=== PATIENT | female | born 1990 | race African-American/Black ===

== ENCOUNTER → 2017-07-05 | Outpatient (CLI) | payer OTHER | END | disposition home or self-care (01) | LOC: RAD 11:56 | DX: M79.605 Pain in left leg (principal) | CPT/HCPCS: 73502 ==

== ENCOUNTER → 2017-07-25 | Outpatient (CLI) | payer OTHER | END | disposition home or self-care (01) | LOC: KCIC MRI 13:17 | DX: S89.91XD Unspecified injury of right lower leg, subsequent encounter (principal); X58.XXXD Exposure to other specified factors, subsequent encounter | CPT/HCPCS: 73721 ==

== ENCOUNTER 2019-11-25 04:00 | Inpatient (IN) | payer MEDICARE, OTHER ==
[~2019-11-25] VITALS: Ht 163.8 cm; Wt 81.0 kg
[~2019-11-25 04:00] MED LIST: SEROQUEL; ZOLOFT
--- NOTE | 2019-11-25 04:30 | PHYS DOC ---
Past Medical History Past Medical History: Anxiety, Depression (OSMANI DE LA ROSA DO) Past Surgical History: No Surgical History (OSMANI DE LA ROSA DO) Alcohol Use: None Drug Use: Marijuana (OSMANI DE LA ROSA DO) General Adult EDM: Chief Complaint: OVERDOSE HPI: HPI: Patient is a 29 year old female presents for evaluation after intention drug overdose. Patient states she is SI. Patient took 12 tablets of trazodone 50mg @ approximately 0330hrs. Patient states she does not want to live anymore. Patient has had 2 previous SI attempts. Patient has no complaints of pain. (OSMANI DE LA ROSA DO) Review of Systems: Review of Systems: Constitutional: Denies fever or chills. [] Eyes: Denies change in visual acuity. [] HENT: Denies nasal congestion or sore throat. [] Respiratory: Denies cough or shortness of breath. [] Cardiovascular: Denies chest pain or edema. [] GI: Denies abdominal pain, nausea, vomiting, bloody stools or diarrhea. [] : Denies dysuria. [] Musculoskeletal: Denies back pain or joint pain. [] Integument: Denies rash. [] Neurologic: Denies headache, focal weakness or sensory changes. [] Endocrine: Denies polyuria or polydipsia. [] Lymphatic: Denies swollen glands. [] Psychiatric: positive SI (OSMANI DE LA ROSA DO) Heart Score: Risk Factors: Risk Factors: DM, Current or recent (<one month) smoker, HTN, HLP, family history of CAD, obesity. Risk Scores: Score 0 - 3: 2.5% MACE over next 6 weeks - Discharge Home Score 4 - 6: 20.3% MACE over next 6 weeks - Admit for Clinical Observation Score 7 - 10: 72.7% MACE over next 6 weeks - Early Invasive Strategies (OSMANI DE LA ROSA DO) Allergies: Allergies: Allergies Coded Allergies Type Severity Reaction Last Updated Verified Penicillins Allergy Unknown 10/17/13 Yes (OSMANI DE LA ROSA DO) Physical Exam: PE: Constitutional: Well developed, well nourished, no acute distress, non-toxic appearance. [] HENT: Normocephalic, atraumatic, bilateral external ears normal, oropharynx moist, no oral exudates, nose normal. [] Eyes: PERRLA, EOMI, conjunctiva normal, no discharge. [] Neck: Normal range of motion, no tenderness, supple, no stridor. [] Cardiovascular:Heart rate regular rhythm, no murmur [] Lungs & Thorax: Bilateral breath sounds clear to auscultation [] Abdomen: Bowel sounds normal, soft, no tenderness, no masses, no pulsatile masses. [] Skin: Warm, dry, no erythema, no rash. [] Back: No tenderness, no CVA tenderness. [] Extremities: No tenderness, no cyanosis, no clubbing, ROM intact, no edema. [] Neurologic: Alert and oriented X 3, normal motor function, normal sensory function, no focal deficits noted. [] Psychologic: patient states she is suicidal (OSMANI DE LA ROSA DO) EKG: EKG: ekg 0427 rate 81 normal sinus rhythm[] (OSMANI DE LA ROSA DO) Radiology/Procedures: Radiology/Procedures: [] (OSMANI DE LA ROSA DO) Course & Med Decision Making: Course & Med Decision Making Pertinent Labs and Imaging studies reviewed. (See chart for details) [] Discussed patient with poison control. Plan to observe patient 4hrs post ingestion. Labs pending---- CBC, UDS. Pending medical clearance patient will be evaluated by PAT team and placed. Patient signed out to Dr Butler. (OSMANI DE LA ROSA DO) Course & Med Decision Making Patient CARE turned over by Dr. Omalley at shift change. Patient received total 3 L of fluids in the ER. Patient's blood pressure is stable now. PAT evaluated patient in the ER. Patient to be transferred to psychiatric facility for further evaluation and treatment. PAT informs me that there are no beds available for ablation. Patient will need to be admitted tonight so that tomorrow they can see there is any beds available. I discussed case with Dr. Stovall from hospitalist service who accepts admission. Discussed results and plan of care with patient. (ARETHA BUTLER DO) Dragon Disclaimer: Dragkody Disclaimer: This electronic medical record was generated, in whole or in part, using a voice recognition dictation system. (OSMANI DE LA ROSA DO) Departure Departure Impression: Primary Impression: Suicidal ideation Additional Impression: Overdose Disposition: ADMITTED INPATIENT Admitting Physician: POLLY (ARETHA BUTLER DO) Condition: GOOD Referrals: ASHU BELLA MD (PCP) Justicifation of Admission Dx: Justifications for Admission: Justification of Admission Dx: Yes Comments: Suicidal Ideation Overdose (ARETHA BUTLER DO) OSMANI DE LA ROSA I DO Nov 25, 2019 04:30 ARETHA BUTLER DO Nov 25, 2019 12:10
[2019-11-25] MEDS ORDERED: IV NORMAL SALINE 1000ML BAG 1,000 ML IV ONE ×3 (04:45→10:00)
[2019-11-25 05:00] LABS: CALCIUM 8.5 mg/dL (8.5-10.1); CREATININE 1.1 mg/dL (0.6-1.0); GFR 71.6; POTASSIUM 3.4 mmol/L (3.5-5.1)
[2019-11-25 05:05] LABS: ACETAMIN < 2 mcg/ml (10-30); ALBUMIN 3.6 g/dL (3.4-5.0); ALBUMIN/GLOBULIN RATIO 0.9 (1.0-1.7); ETHANOL < 10 mg/dL (0-10); SALIC 3.5 mg/dL (2.8-20.0); TOTAL BILIRUBIN 0.3 mg/dL (0.2-1.0); TOTAL PROTEIN 7.7 g/dL (6.4-8.2)
[2019-11-25 06:42] LABS: U PREG PATIENT NEGATIVE (NEG)
[2019-11-25 06:46] LABS: BARBITURATES NEG (NEG); BENZODIAZEPINES NEG (NEG); CANNABINOIDS NEG (NEG); COCAINE NEG (NEG); METHADONE NEG (NEG); OPIATES NEG (NEG); PHENCYCLIDINE NEG (NEG)
[2019-11-25 06:50] LABS: AMPHETAMINE/METHAMPHETAMINE NEG (NEG)
[2019-11-25 07:29] LABS: BASO % 1 % (0-3); EOS # 0.1 x10^3/uL (0.0-0.7); EOS % 2 % (0-3); HEMATOCRIT 36.1 % (36.0-47.0); HEMOGLOBIN 12.2 g/dL (12.0-15.5); LYMPH # 1.8 x10^3/uL (1.0-4.8); LYMPH % 25 % (24-48); MEAN CORPUSCULAR HEMOGLOBIN 32 pg (25-35); MEAN CORPUSCULAR HGB CONC 34 g/dL (31-37); MEAN CORPUSCULAR VOLUME 93 fL (79-100); MONO # 0.3 x10^3/uL (0.0-1.1); MONO % 5 % (0-9); NEUT # 4.9 x10^3/uL (1.8-7.7); NEUT % 68 % (31-73); PLATELET COUNT 367 x10^3/uL (140-400); RED BLOOD COUNT 3.87 x10^6/uL (3.50-5.40); RED CELL DISTRIBUTION WIDTH 13.8 % (11.5-14.5); WHITE BLOOD COUNT 7.1 x10^3/uL (4.0-11.0)
--- NOTE | 2019-11-25 12:08 | EKG ---
[facility] [address] [place] [address] Test Date: 2019-11-25 Test Time: 04:27:13 Pat Name: TOM OLIVERA Department: Room: Gender: F Batch Mixer Operator: : 1990 Requested By: OSMANI DE LA ROSA Order Number: [id number] Reading MD: Adan Ward MD Measurements Intervals Coleman Rate: 81 P: 48 MI: 212 QRS: 38 QRSD: 82 T: 49 QT: 372 QTc: 438 Interpretive Statements SINUS RHYTHM Electronically Signed On 12-23-2019 9:25:51 CDT by Adan Ward MD
--- NOTE | 2019-11-25 13:49 | PDOC1 ---
History and Physical Date of Admission Date of Admission DATE: 11/25/19 TIME: 13:48 Identification/Chief Complaint Chief Complaint seen in ER 29 year old female presents for evaluation after intention drug overdose. Patient states she is SI. took 12 tablets of trazodone 50mg @ approximately 0330hrs. Patient states she does not want to live anymore. has had 2 previous SI attempts. Followed by a psychiatrist in [place] she notes a long history of mental health problems including depression and psychosis often "hears voices which tell her to hurt herself" Past Medical History Past Medical History Past Medical History Past Medical History: Anxiety, Depression Past Surgical History: No Surgical History Alcohol Use: None Drug Use: Marijuana fhx depression Psych: Anxiety, Depression, Psychosis, Schizophrenia Family History Family History: Depression Social History Smoke: <1 pack per day ALCOHOL: none Drugs: None, Marijuana Current Problem List Problem List Problems Medical Problems: (1) Overdose Status: Acute (2) Suicidal ideation Status: Acute Current Medications Current Medications Current Medications Sodium Chloride 1,000 ml @ 1,000 mls/hr 1X ONCE IV Last administered on 11/25/19at 04:45; Start 11/25/19 at 04:45; Stop 11/25/19 at 05:44; Status DC Sodium Chloride 1,000 ml @ 1,000 mls/hr 1X ONCE IV Last administered on 11/25/19at 06:15; Start 11/25/19 at 06:15; Stop 11/25/19 at 07:14; Status DC Sodium Chloride 1,000 ml @ 1,000 mls/hr 1X ONCE IV Last administered on 11/25/19at 09:50; Start 11/25/19 at 10:00; Stop 11/25/19 at 10:59; Status DC Active Scripts Active Reported [Seroquel] [Zoloft] Allergies Allergies: Coded Allergies: hepatitis A virus vaccine (Verified Allergy, Severe, Shortness of Air, 11/25/19) itching peanut (Verified Allergy, Severe, Shortness of Air, 11/25/19) swelling neomycin (Verified Allergy, Intermediate, Itching, 11/25/19) Penicillins (Verified Allergy, Unknown, 10/17/13) ROS Review of System Review of Systems: Review of Systems: Constitutional: Denies fever or chills. [] Eyes: Denies change in visual acuity. [] HENT: Denies nasal congestion or sore throat. [] Respiratory: Denies cough or shortness of breath. [] Cardiovascular: Denies chest pain or edema. [] GI: Denies abdominal pain, nausea, vomiting, bloody stools or diarrhea. [] : Denies dysuria. [] Musculoskeletal: Denies back pain or joint pain. [] Integument: Denies rash. [] Neurologic: Denies headache, focal weakness or sensory changes. [] Endocrine: Denies polyuria or polydipsia. [] Lymphatic: Denies swollen glands. [] Psychiatric: positive SI 14 PT ROS OTHERWISE NEG General: YES: Fatigue PSYCHOLOGICAL ROS: YES: Anxiety, Concentration difficultie, Depression, Hallucinations, Irritablity, Memory difficulties, Mood Swings, Obsessive thoughts, Sleep disturbances Eyes: No Blurry vision, No Decreased vision, No Double vision, No Dry eyes, No Excessive tearing, No Eye Pain, No Itchy Eyes, No Loss of vision, No Photophobia, No Scotomata, No Uses contacts, No Uses glasses, No Other Respiratory: No: Cough, Hemoptysis, Orthopnea, Pleuritic Pain, Shortness of breath, SOB with excertion, Sputum Changes, Stridor, Tachypnea, Wheezing, Other Cardiovascular: No Chest Pain, No Palpitations, No Orthopnea, No Paroxysmal Noc. Dyspnea, No Edema, No Lt Headedness, No Other Gastrointestinal: No Nausea, No Vomiting, No Abdominal Pain, No Diarrhea, No Constipation, No Melena, No Hematochezia, No Other Genitourinary: No Dysuria, No Frequency, No Incontinence, No Hematuria, No Retention, No Discharge, No Urgency, No Pain, No Flank Pain, No Other, No , No , No , No , No , No , No Musculoskeletal: No Gait Disturbance, No Joint Pain, No Joint Stiffness, No Joint Swelling, No Muscle Pain, No Muscular Weakness, No Pain In:, No Swelling In:, No Other Neurological: No Behavorial Changes, No Bowel/Bladder ControlChng, No Confusion, No Dizziness, No Gait Disturbance, No Headaches, No Impaired Coord/balance, No Memory Loss, No Numbness/Tingling, No Seizures, No Speech Problems, No Tremors, No Visual Changes, No Weakness, No Other Skin: No Dry Skin, No Eczema, No Hair Changes, No Lumps, No Mole Changes, No Mottling, No Nail Changes, No Pruritus, No Rash, No Skin Lesion Changes, No Other, No Acne Physical Exam Physical Exam Constitutional: Well developed, well nourished, no acute distress, non-toxic appearance. [] HENT: Normocephalic, atraumatic, bilateral external ears normal, oropharynx moist, no oral exudates, nose normal. [] Eyes: PERRLA, EOMI, conjunctiva normal, no discharge. [] Neck: Normal range of motion, no tenderness, supple, no stridor. [] Cardiovascular:Heart rate regular rhythm, no murmur [] Lungs & Thorax: Bilateral breath sounds clear to auscultation [] Abdomen: Bowel sounds normal, soft, no tenderness, no masses, no pulsatile masses. [] Skin: Warm, dry, no erythema, no rash. [] Back: No tenderness, no CVA tenderness. [] Extremities: No tenderness, no cyanosis, no clubbing, ROM intact, no edema. [] Neurologic: Alert and oriented X 3, normal motor function, normal sensory function, no focal deficits noted. [] Psychologic: patient states she is suicidal," hearing voices when it is quiet" General: Alert, Oriented X3, Cooperative, No acute distress HEENT: EOMI, Mucous membr. moist/pink Lungs: Clear to auscultation, Normal air movement Heart: S1S2, RRR, no thrills, no gallops, no murmurs Breasts: Not examined Abdomen: Normal bowel sounds, Soft, No tenderness Rectal Exam: not examined PELVIC: Examination not indicated Extremities: No clubbing, No cyanosis, No edema, Normal pulses Skin: No rashes, No significant lesion Neuro: Normal speech, Strength at 5/5 X4 ext, Normal tone, Sensation intact, Cranial nerves 3-12 NL Vitals Vitals Vital Signs Date Time Temp Pulse Resp B/P (MAP) Pulse Ox O2 Delivery O2 Flow Rate FiO2 11/25/19 12:13 50 12 100 11/25/19 04:19 98.9 107/74 (85) Room Air 98.9 Labs Labs Laboratory Tests Test 11/25/19 04:20 11/25/19 04:30 11/25/19 06:25 White Blood Count 7.1 x10^3/uL (4.0-11.0) Red Blood Count 3.87 x10^6/uL (3.50-5.40) Hemoglobin 12.2 g/dL (12.0-15.5) Hematocrit 36.1 % (36.0-47.0) Mean Corpuscular Volume 93 fL (79-100) Mean Corpuscular Hemoglobin 32 pg (25-35) Mean Corpuscular Hemoglobin Concent 34 g/dL (31-37) Red Cell Distribution Width 13.8 % (11.5-14.5) Platelet Count 367 x10^3/uL (140-400) Neutrophils (%) (Auto) 68 % (31-73) Lymphocytes (%) (Auto) 25 % (24-48) Monocytes (%) (Auto) 5 % (0-9) Eosinophils (%) (Auto) 2 % (0-3) Basophils (%) (Auto) 1 % (0-3) Neutrophils # (Auto) 4.9 x10^3/uL (1.8-7.7) Lymphocytes # (Auto) 1.8 x10^3/uL (1.0-4.8) Monocytes # (Auto) 0.3 x10^3/uL (0.0-1.1) Eosinophils # (Auto) 0.1 x10^3/uL (0.0-0.7) Basophils # (Auto) 0.0 x10^3/uL (0.0-0.2) Sodium Level 138 mmol/L (136-145) Potassium Level 3.4 mmol/L (3.5-5.1) Chloride Level 101 mmol/L (98-107) Carbon Dioxide Level 26 mmol/L (21-32) Anion Gap 11 (6-14) Blood Urea Nitrogen 6 mg/dL (7-20) Creatinine 1.1 mg/dL (0.6-1.0) Estimated GFR (Cockcroft-Gault) 71.6 BUN/Creatinine Ratio 5 (6-20) Glucose Level 117 mg/dL (70-99) Calcium Level 8.5 mg/dL (8.5-10.1) Total Bilirubin 0.3 mg/dL (0.2-1.0) Aspartate Amino Transf (AST/SGOT) 20 U/L (15-37) Alanine Aminotransferase (ALT/SGPT) 34 U/L (14-59) Alkaline Phosphatase 68 U/L (46-116) Total Protein 7.7 g/dL (6.4-8.2) Albumin 3.6 g/dL (3.4-5.0) Albumin/Globulin Ratio 0.9 (1.0-1.7) Salicylates Level 3.5 mg/dL (2.8-20.0) Salicylate Last Dose Date Salicylate Last Dose Time Acetaminophen Level < 2 mcg/ml (10-30) Acetaminophen Last Dose Date Acetaminophen Last Dose Time Ethyl Alcohol Level < 10 mg/dL (0-10) Urine Test Negative (NEG) Urine Opiates Screen Neg (NEG) Urine Methadone Screen Neg (NEG) Urine Barbiturates Neg (NEG) Urine Phencyclidine Screen Neg (NEG) Urine Amphetamine/Methamphetamine Neg (NEG) Urine Benzodiazepines Screen Neg (NEG) Urine Cocaine Screen Neg (NEG) Urine Cannabinoids Screen Neg (NEG) Urine Ethyl Alcohol (NEG) Laboratory Tests Test 11/25/19 04:20 11/25/19 04:30 11/25/19 06:25 White Blood Count 7.1 x10^3/uL (4.0-11.0) Red Blood Count 3.87 x10^6/uL (3.50-5.40) Hemoglobin 12.2 g/dL (12.0-15.5) Hematocrit 36.1 % (36.0-47.0) Mean Corpuscular Volume 93 fL (79-100) Mean Corpuscular Hemoglobin 32 pg (25-35) Mean Corpuscular Hemoglobin Concent 34 g/dL (31-37) Red Cell Distribution Width 13.8 % (11.5-14.5) Platelet Count 367 x10^3/uL (140-400) Neutrophils (%) (Auto) 68 % (31-73) Lymphocytes (%) (Auto) 25 % (24-48) Monocytes (%) (Auto) 5 % (0-9) Eosinophils (%) (Auto) 2 % (0-3) Basophils (%) (Auto) 1 % (0-3) Neutrophils # (Auto) 4.9 x10^3/uL (1.8-7.7) Lymphocytes # (Auto) 1.8 x10^3/uL (1.0-4.8) Monocytes # (Auto) 0.3 x10^3/uL (0.0-1.1) Eosinophils # (Auto) 0.1 x10^3/uL (0.0-0.7) Basophils # (Auto) 0.0 x10^3/uL (0.0-0.2) Sodium Level 138 mmol/L (136-145) Potassium Level 3.4 mmol/L (3.5-5.1) Chloride Level 101 mmol/L (98-107) Carbon Dioxide Level 26 mmol/L (21-32) Anion Gap 11 (6-14) Blood Urea Nitrogen 6 mg/dL (7-20) Creatinine 1.1 mg/dL (0.6-1.0) Estimated GFR (Cockcroft-Gault) 71.6 BUN/Creatinine Ratio 5 (6-20) Glucose Level 117 mg/dL (70-99) Calcium Level 8.5 mg/dL (8.5-10.1) Total Bilirubin 0.3 mg/dL (0.2-1.0) Aspartate Amino Transf (AST/SGOT) 20 U/L (15-37) Alanine Aminotransferase (ALT/SGPT) 34 U/L (14-59) Alkaline Phosphatase 68 U/L (46-116) Total Protein 7.7 g/dL (6.4-8.2) Albumin 3.6 g/dL (3.4-5.0) Albumin/Globulin Ratio 0.9 (1.0-1.7) Salicylates Level 3.5 mg/dL (2.8-20.0) Salicylate Last Dose Date Salicylate Last Dose Time Acetaminophen Level < 2 mcg/ml (10-30) Acetaminophen Last Dose Date Acetaminophen Last Dose Time Ethyl Alcohol Level < 10 mg/dL (0-10) Urine Test Negative (NEG) Urine Opiates Screen Neg (NEG) Urine Methadone Screen Neg (NEG) Urine Barbiturates Neg (NEG) Urine Phencyclidine Screen Neg (NEG) Urine Amphetamine/Methamphetamine Neg (NEG) Urine Benzodiazepines Screen Neg (NEG) Urine Cocaine Screen Neg (NEG) Urine Cannabinoids Screen Neg (NEG) Urine Ethyl Alcohol (NEG) VTE Prophylaxis Ordered VTE Prophylaxis Devices: Yes VTE Pharmacological Prophylaxi: Yes Assessment/Plan Assessment/Plan impression 1. Major depressive disorder 2. suicide ideations 3. acute psychosis WITH AUDITORY HALLUCINATIONS 4. intentional trazadone overdose 5. TOBACCO ABUSE DISORDER 6, HX THC abuse plan admit tele psych consult suicide precautions ekg now MONITOR QTC IV FLUID SUPPORT DVT PROPHYLAXIS HOLD MEDS TODAY UDS [facility] POISON CONTROL CONTACTED D/W ER DR Hernandezfation of Admission Dx: Justifications for Admission: Justification of Admission Dx: Yes Altered Mental Status: Altered Mental Status Comments: ACUTE SUICIDE ATTEMPT LORENA GARZA MD Nov 25, 2019 13:49
[2019-11-25 14:33] VITALS: BP 84/47
[2019-11-25] MEDS ORDERED: TRAZ-123 PO (15:17)
[2019-11-25] MEDS ORDERED: OLAN20TA3 PO (15:18)
[2019-11-25] MEDS ORDERED: FLUO10CA13 PO (15:19)
--- NOTE | 2019-11-25 16:00 | NUR ---
Admitted Ms. Belinda Brooks 29/F, case of SI. She is AOx4, arrived via bed at 1423 accompanied by the patient's mother. Room was checked, placed on 1:1 observation, Corinne MARTINES in the room.
[2019-11-25 16:27] VITALS: BP 100/65
[2019-11-25] MEDS ORDERED: DOCUSATE SODIUM 100 MG CAPSULE. PO PRN (18:30)
[2019-11-25] MEDS ORDERED: ACETAMINOPHEN 325 MG TABLET. PO PRN (18:30)
[2019-11-25] MEDS ORDERED: LORazepam 0.5 MG TABLET PO PRN (18:30)
[2019-11-25] MEDS ORDERED: MAG HYDROX/ALUMINUM HYD/SIMETH 30 ML ORAL.SUSP PO PRN (18:30)
[2019-11-25] MEDS ORDERED: guaiFENesin ORAL 200 MG/10 ML LIQUID. PO PRN (18:30)
[2019-11-25] MEDS ORDERED: SODIUM PHOSPHATES 19/7GM 133 ML ENEMA. PR PRN (18:30)
[2019-11-25] MEDS ORDERED: 0.9 % SODIUM CHLORIDE 10 ML DISP.SYRIN. IV PRN (18:30)
[2019-11-25 19:00] VITALS: BP 103/71
--- NOTE | 2019-11-25 19:37 | PDOC1 ---
History & Psych Evaluation Date of Admission: Date of Admission DATE: 11/25/19 TIME: 19:07 Source: Source: Caregiver, Chart review, Patient Identification: Identification She is a 29-year-old -Palestinian female with history of schizoaffective disorder admitted with intentional overdose. Chief Complaint: Chief Complaint Auditory hallucinations, depression, anxiety, mood instability, suicidal attempt History of Present Illness: HPI: She is an -Palestinian female with history of schizoaffective disorder admitted with intentional overdose of trazodone to take her life. She is accompanied by her mother who also contributed in the interview and provided meaningful information. Upon interview, she appears guarded and somewhat frustrated. She has been struggling with a schizoaffective disorder since the age of 17. Started with auditory and visual hallucinations. She has been previously hospitalized for schizoaffective disorder. Stating that, she could not identify any precipitating factor. States, she was compliant with her Zyprexa 30 mg daily and Prozac 10 mg daily. States, in spite of being compliant with medication, she never got her hallucinations completely suppressed. States, her hallucinations were in the background and not so distressing. Spontaneously, few days ago her hallucinations got worse, very distressing, and and knowing for her. Hallucinations are voices with derogatory content, telling her that she is worthless. In addition to that, depression and anxiety got worse. Stating her depression is 11/1009 is worse with low self-esteem, self- deprecating thoughts, sadness, insomnia, anxiety, and recurrent suicidal ideation. Out of that annoyance, severe insomnia, she overdosed on trazodone as she was tired of having hallucinations. Previously, she has tried multiple medications but not very effective including antipsychotics except for Haldol. He has history of anger dyscontrol, and agitation with punching mario out of anger. She does have history of mood instability including high energy, insomnia, racing thoughts, goal-directed activities, anger dyscontrol followed by depressive episode. He does have history of severe anxiety. Denies history of panic attacks. She gets isolated and withdrawn when hallucinations are severe. Past Psychiatric History: Previously diagnosed with schizoaffective disorder, depression, anxiety, and probably bipolar mood disorder. She has history of hospital admissions twice. This is her third hospital admission for decompensated psychosis. Previous history of suicidal attempts. Denies history of nonsuicidal self- injurious behavior. Past Medical History: History of marijuana abuse. Schizoaffective disorder. Family History: Grandmother has a schizophrenia. No history of suicide in the family. Social History: Social History: She is visiting [place]. Graduated from high school. 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 She provides support. Lives with her mother. Denies legal issues. Denies history of alcohol abuse. Current Medications: Current Medications Current Medications Medications (Trade) Dose Ordered Sig/Maida Start Time Stop Time Status Last Admin Dose Admin Acetaminophen (Tylenol) 650 mg PRN Q4HRS PRN 11/25/19 18:30 Al Hydroxide/Mg Hydroxide (Mylanta Plus Xs) 30 ml PRN DAILY PRN 11/25/19 18:30 Docusate Sodium (Colace) 100 mg PRN BID PRN 11/25/19 18:30 Enoxaparin Sodium (Lovenox 40mg Syringe) 40 mg Q24H 11/25/19 20:00 Fluoxetine HCl (PROzac) 10 mg DAILYWBKFT 11/26/19 08:00 Guaifenesin (Robitussin) 200 mg PRN Q4HRS PRN 11/25/19 18:30 Lorazepam (Ativan Inj) 2 mg PRN Q4HRS PRN 11/25/19 18:30 Lorazepam (Ativan) 0.5 mg PRN Q4HRS PRN 11/25/19 18:30 Sodium Monofluorophosphate (Fleet Adult) 133 ml PRN DAILY PRN 11/25/19 18:30 Sodium Chloride 1,000 ml @ 100 mls/hr Q10H 11/25/19 18:20 Sodium Chloride (Normal Saline Flush) 3 ml QSHIFT PRN 11/25/19 18:30 Allergies: Allergies: Coded Allergies: hepatitis A virus vaccine (Verified Allergy, Severe, Shortness of Air, 11/25/19) itching peanut (Verified Allergy, Severe, Shortness of Air, 11/25/19) swelling neomycin (Verified Allergy, Intermediate, Itching, 11/25/19) Penicillins (Verified Allergy, Unknown, 10/17/13) Mental Status Examination: Mental Status Examination Young -Palestinian female, appears her stated age, fairly groomed, fairly nourished. Guarded, frustrated Oriented Speech is soft, low tone and volume Thought processes with blocking. Endorsing auditory hallucinations. Denies visual hallucinations. Endorsing suicidal ideation, denies intent or plan in hospital. Mood is depressed, Affect is dysphoric. Insight is limited Judgment is limited Impulse control is limited Attention span and concentration impaired Recent and remote memory intact. ROS: CONSTITUTIONAL: No fever or chills EYES: No recent changes SKIN: No rash or itching CARDIOVASCULAR: No chest pain, syncope, palpitations, or edema RESPIRATORY: No SOB or cough GASTROINTESTINAL: No nausea, vomiting or abdominal pain NEUROLOGICAL: No headaches or weakness ENDOCRINE: No cold or heat intolerance GENITOURINARY: No urgency or frequency of urination MUSCULOSKELETAL: No back pain or joint pain LYMPHATICS: No enlarged lymph nodes PSYCHIATRIC: Auditory hallucinations, psychosis, anxiety, depression, suicidal attempt, suicidal ideation. Physical Exam: Refer to Physician's note. 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 MSK: No EPS, TDK, or abnormal involuntary movements Vitals: Vitals Vital Signs Date Time Temp Pulse Resp B/P (MAP) Pulse Ox O2 Delivery O2 Flow Rate FiO2 11/25/19 16:27 61 100/65 (77) 11/25/19 15:15 Room Air 11/25/19 14:33 97.7 17 98 97.7 Labs: Labs Laboratory Tests Test 11/25/19 04:20 11/25/19 04:30 11/25/19 06:25 White Blood Count 7.1 x10^3/uL (4.0-11.0) Red Blood Count 3.87 x10^6/uL (3.50-5.40) Hemoglobin 12.2 g/dL (12.0-15.5) Hematocrit 36.1 % (36.0-47.0) Mean Corpuscular Volume 93 fL (79-100) Mean Corpuscular Hemoglobin 32 pg (25-35) Mean Corpuscular Hemoglobin Concent 34 g/dL (31-37) Red Cell Distribution Width 13.8 % (11.5-14.5) Platelet Count 367 x10^3/uL (140-400) Neutrophils (%) (Auto) 68 % (31-73) Lymphocytes (%) (Auto) 25 % (24-48) Monocytes (%) (Auto) 5 % (0-9) Eosinophils (%) (Auto) 2 % (0-3) Basophils (%) (Auto) 1 % (0-3) Neutrophils # (Auto) 4.9 x10^3/uL (1.8-7.7) Lymphocytes # (Auto) 1.8 x10^3/uL (1.0-4.8) Monocytes # (Auto) 0.3 x10^3/uL (0.0-1.1) Eosinophils # (Auto) 0.1 x10^3/uL (0.0-0.7) Basophils # (Auto) 0.0 x10^3/uL (0.0-0.2) Sodium Level 138 mmol/L (136-145) Potassium Level 3.4 mmol/L (3.5-5.1) Chloride Level 101 mmol/L (98-107) Carbon Dioxide Level 26 mmol/L (21-32) Anion Gap 11 (6-14) Blood Urea Nitrogen 6 mg/dL (7-20) Creatinine 1.1 mg/dL (0.6-1.0) Estimated GFR (Cockcroft-Gault) 71.6 BUN/Creatinine Ratio 5 (6-20) Glucose Level 117 mg/dL (70-99) Calcium Level 8.5 mg/dL (8.5-10.1) Total Bilirubin 0.3 mg/dL (0.2-1.0) Aspartate Amino Transf (AST/SGOT) 20 U/L (15-37) Alanine Aminotransferase (ALT/SGPT) 34 U/L (14-59) Alkaline Phosphatase 68 U/L (46-116) Total Protein 7.7 g/dL (6.4-8.2) Albumin 3.6 g/dL (3.4-5.0) Albumin/Globulin Ratio 0.9 (1.0-1.7) Salicylates Level 3.5 mg/dL (2.8-20.0) Salicylate Last Dose Date Salicylate Last Dose Time Acetaminophen Level < 2 mcg/ml (10-30) Acetaminophen Last Dose Date Acetaminophen Last Dose Time Ethyl Alcohol Level < 10 mg/dL (0-10) Urine Test Negative (NEG) Urine Opiates Screen Neg (NEG) Urine Methadone Screen Neg (NEG) Urine Barbiturates Neg (NEG) Urine Phencyclidine Screen Neg (NEG) Urine Amphetamine/Methamphetamine Neg (NEG) Urine Benzodiazepines Screen Neg (NEG) Urine Cocaine Screen Neg (NEG) Urine Cannabinoids Screen Neg (NEG) Urine Ethyl Alcohol (NEG) Laboratory Tests Test 11/25/19 04:20 11/25/19 04:30 11/25/19 06:25 White Blood Count 7.1 x10^3/uL (4.0-11.0) Red Blood Count 3.87 x10^6/uL (3.50-5.40) Hemoglobin 12.2 g/dL (12.0-15.5) Hematocrit 36.1 % (36.0-47.0) Mean Corpuscular Volume 93 fL (79-100) Mean Corpuscular Hemoglobin 32 pg (25-35) Mean Corpuscular Hemoglobin Concent 34 g/dL (31-37) Red Cell Distribution Width 13.8 % (11.5-14.5) Platelet Count 367 x10^3/uL (140-400) Neutrophils (%) (Auto) 68 % (31-73) Lymphocytes (%) (Auto) 25 % (24-48) Monocytes (%) (Auto) 5 % (0-9) Eosinophils (%) (Auto) 2 % (0-3) Basophils (%) (Auto) 1 % (0-3) Neutrophils # (Auto) 4.9 x10^3/uL (1.8-7.7) Lymphocytes # (Auto) 1.8 x10^3/uL (1.0-4.8) Monocytes # (Auto) 0.3 x10^3/uL (0.0-1.1) Eosinophils # (Auto) 0.1 x10^3/uL (0.0-0.7) Basophils # (Auto) 0.0 x10^3/uL (0.0-0.2) Sodium Level 138 mmol/L (136-145) Potassium Level 3.4 mmol/L (3.5-5.1) Chloride Level 101 mmol/L (98-107) Carbon Dioxide Level 26 mmol/L (21-32) Anion Gap 11 (6-14) Blood Urea Nitrogen 6 mg/dL (7-20) Creatinine 1.1 mg/dL (0.6-1.0) Estimated GFR (Cockcroft-Gault) 71.6 BUN/Creatinine Ratio 5 (6-20) Glucose Level 117 mg/dL (70-99) Calcium Level 8.5 mg/dL (8.5-10.1) Total Bilirubin 0.3 mg/dL (0.2-1.0) Aspartate Amino Transf (AST/SGOT) 20 U/L (15-37) Alanine Aminotransferase (ALT/SGPT) 34 U/L (14-59) Alkaline Phosphatase 68 U/L (46-116) Total Protein 7.7 g/dL (6.4-8.2) Albumin 3.6 g/dL (3.4-5.0) Albumin/Globulin Ratio 0.9 (1.0-1.7) Salicylates Level 3.5 mg/dL (2.8-20.0) Salicylate Last Dose Date Salicylate Last Dose Time Acetaminophen Level < 2 mcg/ml (10-30) Acetaminophen Last Dose Date Acetaminophen Last Dose Time Ethyl Alcohol Level < 10 mg/dL (0-10) Urine Test Negative (NEG) Urine Opiates Screen Neg (NEG) Urine Methadone Screen Neg (NEG) Urine Barbiturates Neg (NEG) Urine Phencyclidine Screen Neg (NEG) Urine Amphetamine/Methamphetamine Neg (NEG) Urine Benzodiazepines Screen Neg (NEG) Urine Cocaine Screen Neg (NEG) Urine Cannabinoids Screen Neg (NEG) Urine Ethyl Alcohol (NEG) Diagnosis: Diagnosis: 1schizoaffective disorder, bipolar type, MRE depressed with mixed features and anxious distress 2rule out bipolar mood disorder with psychosis. 3unspecified depression 4unspecified anxiety disorder. 5THC use disorder, recurrent moderate. 6R/O substance induced psychopsis. Thank you for involving in patient care. Assessment: She is a young -Palest[place] female with longstanding history of schizoaffective disorder likely bipolar type, presently depressed with anxious distress. Apparently, THC use could be the precipitating factor for acute on ch ronic psychotic decompensation. Zyprexa though in higher than normal doses seems to be ineffective. She is in agreement to make medication changes. We will cross titrate Zyprexa with Haldol. Treatment plan discussed in presence of mother. She is also in agreement. Plan: 1cross titrate Zyprexa with Haldol. Decrease Zyprexa to 20 mg nightly. Add 5 mg Haldol at bedtime for psychosis. 2continue other medications as prescribed. 3risk, benefits, alternatives of the treatment are discussed. She is in agreement with plan and voiced understanding. 4adverse drug reactions including but not limited to risk of tardive dyskinesia, EPS, dystonias, and anticholinergic side effects, black box warning are discussed. 5she needs inpatient psychiatric hospital admission for crisis stabilization and further management. 6monitor for safety, symptomatology, and adverse drug reaction. Add Cogentin 0.5 mg twice a day for EPS prophylaxis. Thank you for involving inpatient care NAVDEEP VILLANUEVA MD Nov 25, 2019 19:37
[2019-11-25] MEDS ORDERED: ENOXAPARIN 40 MG/0.4 ML SYRINGE. SQ SCH (20:00)
[2019-11-25] MEDS: IV NORMAL SALINE 1000ML BAG 1,000 ML IV SCH (20:37)
[2019-11-25] MEDS ORDERED: HALOPERIDOL 5 MG TABLET. PO SCH (21:00)
[2019-11-25 23:00] VITALS: BP 113/78
[2019-11-26 03:00] VITALS: BP 114/70
[2019-11-26 07:00] VITALS: BP 112/76
--- NOTE | 2019-11-26 07:44 | NUR ---
Received call from Robina at [facility]. She wanted to verify the pt is still needing placement, let her know pt does need placement. Informed her COVID-19 test came back negative. She asked we sent the test results w/ her info packet.
[2019-11-26] MEDS ORDERED: FLUoxetine HCL 10 MG CAPSULE PO SCH (08:00)
--- NOTE | 2019-11-26 08:30 | EKG ---
[facility] [address] [place] [address] Test Date: 2019-11-25 Test Time: 12:01:55 Pat Name: TOM OLIVERA Department: Room: [facility] Gender: F Animal Assistant: : 1990 Requested By: LORENA GARZA Order Number: [id number] Reading MD: Lico Ortiz Measurements Intervals [place] Rate: 56 P: 49 AR: 230 QRS: 42 QRSD: 60 T: 59 QT: 424 QTc: 412 Interpretive Statements SINUS RHYTHM ATRIAL PREMATURE COMPLEX(ES) PROLONGED AR INTERVAL ABNORMAL ECG RI6.02 Compared to ECG 11/25/2019 04:27:13 First degree AV block now present Electronically Signed On 12-23-2019 12:34:32 CDT by Lico Ortiz
[2019-11-26] MEDS: IV NORMAL SALINE 1000ML BAG 1,000 ML IV SCH (09:34)
[2019-11-26] MEDS ORDERED: DOCUSATE SODIUM 100 MG CAPSULE. PO PRN (09:45)
--- NOTE | 2019-11-26 10:33 | NUR ---
At time of assessment, pt was calm, cooperative, non-combative and participated in assessment. Pt states she is not having any SI/HI thoughts at the time but, still hearing voices others do not hear. When asked about the voices, she stated they are not being "loud" at the time. Pt stated she is agreeable to go to in-patient treatment. Let pt know that we are waiting to hear about bed availability and we will update as we get information.
[2019-11-26 11:00] VITALS: BP 103/64
--- NOTE | 2019-11-26 11:17 | SNU/HH DC ---
DISCHARGE ORDERS DISCHARGE INFORMATION: FINAL DIAGNOSIS Problems Medical Problems: (1) Overdose Status: Acute (2) Suicidal ideation Status: Acute CONDITION ON DISCHARGE: Stable CODE STATUS: Code Status: Full GROUP HOME: SNF STAY <30 DAYS: No HOSPICE: HOSPICE: No HOSPICE EVAL & TREAT: No LTAC: ADMIT TO LTAC: No POST DISCHARGE ORDERS: ACTIVITY ORDERS: Activity as tolerated DIET AFTER DISCHARGE: Cardiac DISCHARGE MEDICATIONS: Home Meds Reported Medications Fluoxetine Hcl (PROZAC) 10 Mg Capsule, 1 CAP PO DAILYWBKFT for depression, #30 CAP 2 Refills 11/25/19 Olanzapine (ZYPREXA) 20 Mg Tablet, 30 MG PO DAILY for depression, TAB 11/25/19 Trazodone Hcl (TRAZODONE HCL) 100 Mg Tablet, 1 TAB PO QHS for depression, #30 TAB 1 Refill 11/25/19 Discontinued Reported Medications [Seroquel] No Conflict Check 10/17/13 [Zoloft] No Conflict Check 10/17/13 QUE HANNA III DO Nov 26, 2019 11:17
--- NOTE | 2019-11-26 11:38 | NUR ---
Poison Control Update: Received call from Mile at [facility] Control. Gave her update on pt's status. She stated she will close the case at this point.
--- NOTE | 2019-11-26 13:20 | NUR ---
SW following. Spoke with RN and coordinated care with Sánchez from PAT. SW coordinated care with Kelli at [facility]. Pt has been accepted per Dr. Ledezma. WINSOME obtained discharge orders from Dr. Gill. WINSOME phoned and faxed discharge orders to [facility], , (fax). RN to call report to [phone]. WINSOME completed Medical Necessity form and phoned and faxed it to [facility] [employer], , (fax). Transportation arranged for 1400. Pt on room air. Clinicals ready to be sent with pt. Notified PAT. No further SW needs at this time. [facility] [address] [place] [address]
--- NOTE | 2019-11-26 14:03 | NUR ---
Discharge Note: TROY OLIVERA [facility] Discharge instructions and discharge home medications reviewed with Other facility and a copy given. All questions have been answered and understanding verbalized. The following instructions and handouts were given: patient visit report, education information. Discontinued lines and drains: peripheral IV, tip intact. Patient discharged to [facility] with RN services via EMS transport. Patient left unit awake, in stable condition. Patient was wearing hospital-issued gown/pants. Personal belongings were taken home by patient's parents.
--- NOTE | 2019-11-26 16:58 | DS ---
DATE OF DISCHARGE: 11/26/2019 ADMISSION DIAGNOSIS: Suicidal ideation. DISCHARGE DIAGNOSES: 1. Resolving suicidal ideation (she is going to inpatient psychiatric care). 2. History of schizophrenia. HOSPITAL COURSE: The patient is a pleasant 29-year-old female who was diagnosed with schizophrenia when she was 17. Basically, she has been having some suicidal ideation. She was admitted. We consulted the PACT team and Dr. Lambert. Plan is for her to go to [facility] inpatient psych later today. I did see her and examined her earlier today. Heart tones are normal. Lungs are clear. She is generally alert and oriented. We plan to discharge. DISPOSITION: [facility]. ACTIVITY: As tolerated. DIET: Low sodium. MEDICATIONS: Please see the MRAD. TOTAL TIME: 34 minutes. QUE HANNA DO DR: SILVER/jesse JOB#: [id number] / [id number]
== END 2019-11-26 14:00 | DRG 918 ==
LOC: ER 04:00 → 6 SOUTH 13:35
PROVIDERS: ADMIT Family Medicine; ATTEND Family Medicine
DX: T43.212A Poisoning by selective serotonin and norepinephrine reuptake inhibitors, intentional self-harm, initial encounter (principal); R45.851 Suicidal ideations; F17.210 Nicotine dependence, cigarettes, uncomplicated; F25.0 Schizoaffective disorder, bipolar type; F12.10 Cannabis abuse, uncomplicated; Z20.828 Contact with and (suspected) exposure to other viral communicable diseases; F41.9 Anxiety disorder, unspecified; G47.00 Insomnia, unspecified; Z81.8 Family history of other mental and behavioral disorders; Z79.899 Other long term (current) drug therapy; Z91.5 Personal history of self-harm; Y92.89 Other specified places as the place of occurrence of the external cause; Z88.0 Allergy status to penicillin; Z88.8 Allergy status to other drugs, medicaments and biological substances; Z91.010 Allergy to peanuts
CPT/HCPCS: 36415; 80053; 80307; 80329; 81025; 85025; 87040; 93005; 96360; 96361; 99285; G0480; J7030; P9612; G0378; U0003-CS

== ENCOUNTER 2020-03-09 06:24 | Emergency (ER) | payer MEDICARE, OTHER ==
[~2020-03-09] VITALS: Ht 162.6 cm; Wt 78.6 kg
[~2020-03-09 06:24] MED LIST changes: +FLUO10CA13 PO; +OLAN20TA3 PO; +TRAZ-123 PO
[2020-03-09 06:35] VITALS: BP 122/80
--- NOTE | 2020-03-09 06:35 | PHYS DOC ---
Past Medical History Past Medical History: Depression Additional Past Medical Histor: SUICIDAL Past Surgical History: No Surgical History Smoking Status: Current Every Day Smoker Alcohol Use: None Drug Use: Marijuana General Adult EDM: Chief Complaint: SKIN RASH/ABSCESS HPI: HPI: Patient is a 29 year old female who presents with a chief complaint of a facial rash that began this morning. Patient has had a sore throat since Monday had a low-grade fever on Monday went to urgent care and was put on Zithromax for possible strep throat given that her test was negative. Patient has been swabbed for coronavirus and that result is pending. Patient notes a fever to 1 01 and is 100.4 this morning but still complains of sore throat and lip pain and swelling that began this morning. Pain is moderate in severity and worse with swallowing. pt also complains of toe pain Review of Systems: Review of Systems: Constitutional: Complains of fever Eyes: Denies change in visual acuity. [] HENT: Complains of sore throat Respiratory: Denies cough or shortness of breath. [] Cardiovascular: Denies chest pain or edema. [] GI: Denies abdominal pain, nausea, vomiting, bloody stools or diarrhea. [] : Denies dysuria. [] Musculoskeletal: Denies back pain but has toe pain Integument: Complains of rash to face Neurologic: Denies headache, focal weakness or sensory changes. [] Endocrine: Denies polyuria or polydipsia. [] Lymphatic: Denies swollen glands. [] Psychiatric: Denies depression or anxiety. [] Heart Score: Risk Factors: Risk Factors: DM, Current or recent (<one month) smoker, HTN, HLP, family history of CAD, obesity. Risk Scores: Score 0 - 3: 2.5% MACE over next 6 weeks - Discharge Home Score 4 - 6: 20.3% MACE over next 6 weeks - Admit for Clinical Observation Score 7 - 10: 72.7% MACE over next 6 weeks - Early Invasive Strategies Allergies: Allergies: Allergies Coded Allergies Type Severity Reaction Last Updated Verified hepatitis A virus vaccine Allergy Severe Shortness of Air 11/25/19 Yes peanut Allergy Severe Shortness of Air 11/25/19 Yes neomycin Allergy Intermediate Itching 11/25/19 Yes Penicillins Allergy Unknown 10/17/13 Yes Physical Exam: PE: Constitutional: Well developed, well nourished, no acute distress, non-toxic appearance. [] HENT: Mild swelling to the lips with some blistering, bilateral external ears normal, oral pharyngeal erythema without tonsillar abscess, nose normal. [] No stridor, no trismus Eyes: PERRLA, EOMI, conjunctiva normal, no discharge. [] Neck: Normal range of motion, no tenderness, supple, no stridor. [] Cardiovascular:Heart rate regular rhythm, peripheral pulse intact cap refill is brisk Lungs & Thorax: Bilateral breath sounds clear no respiratory distress Abdomen: soft, no tenderness, no masses, no pulsatile masses. [] Skin: Warm, dry, rash present to the lips and on the upper lip predominantly, mild scaling with faint erythema Back: No tenderness, no CVA tenderness. [] Extremities: No tenderness, no cyanosis, no clubbing, ROM intact, no edema. [] Neurologic: Alert and oriented X 3, normal motor function, normal sensory function, no focal deficits noted. [] Psychologic: Affect normal, judgement normal, mood normal. [] EKG: EKG: [] Radiology/Procedures: Radiology/Procedures: [] Course & Med Decision Making: Course & Med Decision Making Pertinent Labs and Imaging studies reviewed. (See chart for details) [] 21-year-old female presents with rash to the face after starting antibiotics 2 days ago. Patient is a mild swelling to the lips predominantly on the upper lip. There is no drainable abscess. Patient has no peritonsillar abscess on exam. Patient has already been swabbed for coronavirus and the result is pending. I feel like this may be a reaction to the Zithromax that she has multiple medication allergies and this may represent this. Patient has no evidence of ocular involvement at this time. I will switch the patient's antibiotics and place her on a short steroid burst and instructed to take Benadryl as well. Patient told to return if symptoms get worse. Patient told to continue to isolate till her coronavirus test comes back. There is no respiratory issues at this time. Dragon Disclaimer: Dragkody Disclaimer: This electronic medical record was generated, in whole or in part, using a voice recognition dictation system. Departure Departure Impression: Primary Impression: Skin rash Disposition: 01 DC HOME SELF CARE/HOMELESS Condition: STABLE Referrals: ASHU BELLA MD (PCP) 2-3 days Patient Instructions: Rash Additional Instructions: You have been tested for or diagnosed with COVID-19. It is an infection caused by a new type of coronavirus. COVID-19 will cause cold-like or mild flu symptoms in most. It can cause more severe symptoms like problems breathing in some. There is no treatment for COVID-19. The body will clear the infection over time. Self-care will help to ease discomfort. Steps to Take: Self-Care Rest as needed. Healthy habits may help you feel better. Steps include: Choose healthy foods including fruits and vegetables. Drink water throughout the day. Get plenty of sleep each night. If you smoke, try to quit. It may ease breathing. Avoid alcohol. Keep Others Healthy The virus can spread to others. Droplets are released every time you sneeze or cough. The droplets can get into the mouth, nose, or eyes of people near you and lead to infection. To lower the chances of spreading COVID-19 to others: Stay at home until your doctor has said it is safe to leave. If you tested positive this will mean staying isolated until both of the following are true: At least 7 days have passed since the start of illness. You are free of fever for at least 72 hours without the use of medicine. During this time: - Avoid public areas, events, or transportation. Do not return to work or school until your doctor has said it is safe to do so. - Call ahead if you need to go to a medical center. Let them know you may have COVID-19. It will help them guide you where to go. They may also ask you to wear a facemask when you come to the office. - If you call for emergency medical services, let them know you may have COVID- 19. While at home: - Try to avoid close contact with others. Stay about 6 feet away. - If possible, spend most of your time in a separate room from others. - Use a face mask if you will be in close contact with others such as sharing a room or vehicle. - Have someone wipe down common surfaces in the home. Use household transmission maintenance supervisor every day on areas like doorknobs, counters, or sinks. - Cough or sneeze into a tissue. Throw the tissue away right after use. If a tissue is not available, cough or sneeze into your elbow. - Wash your hands often. Wash them after sneezing or coughing. Use soap and water and wash for at least 20 seconds. Alcohol based hand leather cleaner can be used if soap and water is not available. - Do not prepare food for others. Avoid sharing personal items like forks, spoons, or toothbrushes. - Avoid close contact with pets while you are sick. There is no evidence of the virus passing to pets. This is a safety step until more is known about this virus. Isolation can be frustrating. Social interaction can help. Keep in touch with friends and family through phone and tech options. You can still interact with others in your home, just keep a safe distance of about 6 feet. Follow-up: Your doctors office will check in with you to see if there are any changes in your health. You may be asked to keep track of symptoms to share with them. They will also let you know when you are clear to be in public again. Problems to Look Out For: Contact your doctor if your recovery is not going as you expect. Get emergency care if you have problems such as: - Trouble breathing - Nonstop chest pain or pressure - Changes in awareness, confusion, or problems waking - Lips or face have bluish color - Worsening of symptoms If you think you have an emergency, call for emergency medical services right away. As taken from [facility] EMERGENCY DEPARTMENT GENERAL DISCHARGE INSTRUCTIONS Thank you for coming to [facility] Emergency Department (ED) today and trusting us with you care. We trust that you had a positive experience in our Emergency Department. If you wish to speak to the department management, you may call the Director at [phone]. YOUR FOLLOW UP INSTRUCTIONS ARE FOLLOWS: 1. Do you have a private Doctor? If you do not have a private doctor, please ask for a resource list of physicians or clinics that may be able to assist you with follow up care. 2. The Emergency Physicain has interpreted your x-rays. The X-Ray specialist w ill also review them. If there is a change in the findings, you will be notified in 48 hours when at all possible. 3. A lab test or culture has been done, your results will be reviewed and you will be notified if you need a change in treatment. ADDITIONAL INSTRUCTIONS AND INFORMATION: 1. Your care today has been supervised by a physician who is specially trained in emergency care. Many problems require more than one evaluation for a complete diagnosis and treatment. We recommend that you schedule your follow up appointment as recommended to ensure complete treatment of you illness or injury. If you are unable to obtain follow up care and continue to have a problem, or if your condition worsens, we recommend that you return to the ED. 2. We are not able to safely determine your condition over the phone nor are we able to give sound medical advice over the phone. For these safety reasons, if you call for medical advice we will ask you to come to the ED for further evaluation. 3. If you have any questions regarding these discharge instructions please call the ED at [phone]. SAFETY INFORMATION: In the interest of safety, wellness, and injury prevention; we encourage you to wear your sealbelt, if you smoke; quite smoking, and we encourage family to use a protective helmet for bicycling and other sporting events that present an increased risk for head injury. IF YOUR SYMPTOMS WORSEN OR NEW SYMPTOMS DEVELOP, OR YOU HAVE CONCERNS ABOUT YOUR CONDITION; OR IF YOUR CONDITION WORSENS WHILE YOU ARE WAITING FOR YOUR FOLLOW UP APPOINTMENT; EITHER CONTACT YOUR PRIMARY CARE DOCTOR, THE PHYSICIAN WHOSE NAME AND NUMBER YOU WERE GIVEN, OR RETURN TO THE ED IMMEDIATELY. Stop the Zithromax and start the clindamycin. Take Benadryl as needed for swelling and pain. Take a short course of steroids. Return if swelling gets worse or pain is worse or had difficulty breathing. Scripts Prednisone (PREDNISONE) 20 Mg Tablet 3 TAB PO DAILY for 5 Days, #15 TAB Prov: LUCA GAONA MD 03/09/20 Clindamycin Hcl (CLINDAMYCIN HCL) 300 Mg Capsule 1 CAP PO QID, #40 CAP Prov: LUCA GAONA MD 03/09/20 LUCA GAONA MD Mar 09, 2020 06:35
[2020-03-09] MEDS ORDERED: PRED20TA PO (06:48)
[2020-03-09] MEDS ORDERED: CLIN300C8 PO (06:48)
== END 2020-03-09 07:10 | disposition home or self-care (01) ==
LOC: ER 06:24
DX: R21 Rash and other nonspecific skin eruption (principal); R50.9 Fever, unspecified; J02.9 Acute pharyngitis, unspecified; F17.200 Nicotine dependence, unspecified, uncomplicated; Z88.0 Allergy status to penicillin; Z91.010 Allergy to peanuts; Z88.1 Allergy status to other antibiotic agents; Z88.7 Allergy status to serum and vaccine
CPT/HCPCS: 99283